=== PATIENT | male | born 1980 | race African-American/Black ===

== ENCOUNTER 2017-02-09 14:00 | Emergency (ER) | payer MEDICAID ==
[~2017-02-09] VITALS: Ht 185.4 cm; Wt 97.0 kg
[~2017-02-09 14:00] MED LIST: AMOX875 PO; DARV PO; MMW SSP; Z.0.NO CURRENT MEDS
[2017-02-09 14:02] VITALS: BP 150/96; PULSE 88; RESP 20; TEMP 97.7; O2SAT 96
--- NOTE | 2017-02-09 14:42 | PD ---
HPI Chief Complaint: Injury Time Seen by Provider: 14:41 Travel History International Travel<30 days: No Contact w/Intl Traveler<30days: No Traveled to known affect area: No History of Present Illness HPI 36 y/o left shoulder pain x 2hours. Patient was working out and felt a "pop". Patient denies numbness or tingling. He does have weakness secondary to pain. His pain is localized to the left anterior shoulder. Patient has no previous history of injury to this shoulder. Pain is currently a 7/10. It is worse with certain movements. Patient has no known drug allergies. PFSH Past Medical History Blood Disorders: No Cardiovascular Problems: No Diminished Hearing: No Endocrine: No Genitourinary: No Immune Disorder: No Musculoskeletal: No Neurologic: No Reproductive: No Respiratory: No Social History Alcohol Use: Yes Tobacco Use: Yes Substance Use: Yes (MARIJUANA) Allergies-Medications (Allergen,Severity, Reaction): Coded Allergies: No Known Allergies (Verified , 02/09/17) Reported Meds & Prescriptions Reported Meds & Active Scripts Active Magic Mouthwash-Diphenhy Formula (Lidocaine/Diphenhydr/Alum/Mg/Simeth) Ml 5-10 Ml SSP 5 TIMES A DAY MAGIC MOUTHWASH CONTAINS 1/3 VISCOUS LIDOCAINE, 1/3 MAALOX, AND 1/3 BENADRYL. Amoxil (Amoxicillin) 875 Mg Tab 875 Mg PO BID 10 Days Darvocet-N 100 (Propoxyphene Napsylate/Acetam) Tab 1 Tab PO Q6HPRN FOR PAIN Reported No Current Meds (Miscellaneous Medication) Misc Review of Systems Except as stated in HPI: all other systems reviewed are Neg General / Constitutional: No: Fever Eyes: No: Visual changes HENT: No: Headaches Cardiovascular: No: Chest Pain or Discomfort Respiratory: No: Shortness of Breath Gastrointestinal: No: Abdominal Pain Genitourinary: No: Dysuria Musculoskeletal: Positive: Myalgias, Limited ROM, Pain (see history of present illness per) Skin: No Rash Neurologic: No: Weakness Psychiatric: No: Depression Endocrine: No: Polydipsia Hematologic/Lymphatic: No: Easy Bruising Physical Exam Narrative GENERAL: Patient has mild to moderate distress. SKIN: Warm and dry. Normal color. Normal turgor. No signs of trauma. HEAD: Atraumatic. Normocephalic. EYES: Pupils equal and round. No scleral icterus. No injection or drainage. ENT: No nasal bleeding or discharge. Mucous membranes pink and moist. NECK: Trachea midline. Supple and nontender. CARDIOVASCULAR: Regular rate and rhythm. RESPIRATORY: No accessory muscle use. Clear to auscultation. Breath sounds equal bilaterally. MUSCULOSKELETAL: Extremities without clubbing, cyanosis, or edema. No obvious deformities. Patient is tenderness along the left anterior deltoid with palpation. Patient is able to place his left hand on his head as well as lift laterally, but his pain is worse with posterior external rotation consistent with rotator cuff strain. Patient has normal extension and flexion of the elbow. He has normal pallet repairer strength. NEUROLOGICAL: Awake and alert. No obvious cranial nerve deficits. Motor grossly within normal limits. Five out of 5 muscle strength in the arms and legs. Normal speech. PSYCHIATRIC: Appropriate mood and affect; insight and judgment normal. Data Data Last Documented VS Vital Signs Date Time Temp Pulse Resp B/P Pulse Ox O2 Delivery O2 Flow Rate FiO2 02/09/17 14:02 97.7 88 20 150/96 96 Room Air MDM Medical Decision Making Medical Screen Exam Complete: Yes Emergency Medical Condition: Yes Differential Diagnosis Left shoulder strain. Rotator cuff strain. Rotator cuff tear. Narrative Course Patient is medically stable at time of exam. Discussed radiographic imaging and that I felt it would not be helpful at this time. Patient is to take ibuprofen 800 mg 3 times daily with food #60 dispensed. Patient can take extra strength Tylenol as well as needed. Patient is to use ice to this area frequently for the next 48 hours, followed by heat followed by ice. Patient is to not do any strenuous work with the left arm for at least 2 weeks. Range of motion exercises are given to the patient. Patient is to follow-up with primary care physician and perhaps be referred to physical therapy as needed. Patient can return to emergency Department with worsening symptoms as needed. Diagnosis Primary Impression: Injury of left rotator cuff Qualified Code: S46.002A - Injury of left rotator cuff, initial encounter Referrals: Primary Care Physician Patient Instructions: Exercises for Internal and External Shoulder Rotation (ED ), Exercises for Shoulder Abduction and Adduction (GEN), Exercises for Shoulder Flexion and Extension (ED), General Instructions, Rotator Cuff Injury (ED) Additional Instructions: Discussed radiographic imaging and that I felt it would not be helpful at this time. Patient is to take ibuprofen 800 mg 3 times daily with food #60 dispensed. Patient can take extra strength Tylenol as well as needed. Patient is to use ice to this area frequently for the next 48 hours, followed by heat followed by ice. Patient is to not do any strenuous work with the left arm for at least 2 weeks. Range of motion exercises are given to the patient. Patient is to follow-up with primary care physician and perhaps be referred to physical therapy as needed. Patient can return to emergency Department with worsening symptoms as needed. Disposition: 01 DISCHARGE HOME Condition: Stable Jose D Rhodes Feb 09, 2017 14:41
[2017-02-09] MEDS ORDERED: IBUP800T23 PO (15:07)
== END 2017-02-09 15:17 | disposition home or self-care (01) ==
LOC: NEPK 14:00
DX: S46.002A Unspecified injury of muscle(s) and tendon(s) of the rotator cuff of left shoulder, initial encounter (principal); X58.XXXA Exposure to other specified factors, initial encounter; Y93.B9 Activity, other involving muscle strengthening exercises
CPT/HCPCS: 99283